=== PATIENT | female | born 1985 | race Asian ===

== ENCOUNTER 2017-11-27 13:14 | Emergency (ER) | payer OTHER ==
[2017-11-27 13:31] VITALS: BP 105/50
--- NOTE | 2017-11-27 14:56 | ED Physician Documentation ---
History of Present Illness - Stated complaint Stated Complaint: ITCHY EYES,JOINT PAIN - Chief complaint Chief Complaint: Heent - Additonal information Additional information: hx from pt 32 f denies preg sinus pressure and seasonal allergy sx also lump under skin of abd wall also always has mm cramps and jt pains - not new Review of Systems Constitutional: denies: Fever, Chills Nose: reports: Congestion, Sinus pressure / pain Respiratory: denies: Cough GI: denies: Abdominal Pain : denies: Now EGA PD PAST MEDICAL HISTORY - Past Medical History Past Medical History: No - Past Surgical History Past Surgical History: No - Present Medications Home Medications: Ambulatory Orders Medication Instructions Recorded Confirmed Cephalexin [Keflex] 500 mg PO Q6H #28 capsule 11/04/15 Phenazopyridine [Pyridium] 100 mg PO Q8H PRN #9 tablet 11/04/15 Fluticasone [Flonase] 2 sprays TRAVIS DAILY PRN #1 bottle 11/27/17 - Allergies Allergies/Adverse Reactions: Allergies Allergy/AdvReac Type Severity Reaction Status Date / Time No Known Drug Allergies Allergy Verified 11/04/15 10:50 - Social History Does the pt smoke?: Yes Smoking Status: Current every day smoker Does the pt drink ETOH?: Yes Does the pt have substance abuse?: No - Immunizations Immunizations are current?: Yes PD ED PE NORMAL - Vitals Vital signs reviewed: Yes - HEENT HEENT: PERRL, Ears normal, Moist mucous membranes (PND and cobblestoning) - Cardiac Cardiac: RRR - Respiratory Respiratory: No respiratory distress, Clear bilaterally - Abdomen Abdomen: Soft, Non tender, Other (small mobile density under skin abd wall most c/w lipoma) - Derm Derm: Normal color - Extremities Extremities: Other (no focal swelling erythema or warmth of ankle wrists or hands) Results - Vitals Vitals: Vital Signs - 24 hr 11/27/17 13:29 Temperature 36.5 C Heart Rate 73 Respiratory 16 Rate Blood Pressure 105/50 L O2 Saturation 100 Oxygen O2 Source Room air Departure - Departure Disposition: 01 Home, Self Care Clinical Impression: Seasonal allergic rhinitis Qualifiers: Allergic rhinitis trigger: unspecified Qualified Code(s): J30.2 - Other seasonal allergic rhinitis Arthralgia Qualifiers: Joint pain location: unspecified Qualified Code(s): M25.50 - Pain in unspecified joint Lipoma Qualifiers: Lipoma location: trunk Qualified Code(s): D17.1 - Benign lipomatous neoplasm of skin and subcutaneous tissue of trunk Condition: Good Instructions: ED Allergy Seasonal Follow-Up: [facility] [Provider Group] Prescriptions: Fluticasone [Flonase] 2 sprays TRAVIS DAILY PRN #1 bottle PRN Reason: allergies Comments: Take the flonase as needed for allergies - no more than two months The lump on your abdomen feels like a lipma and no further treatment is needed unless it gets larger or more painful Try motrin for your aching joints Please follow up with your PMD at [facility]
== END 2017-11-27 15:10 | disposition home or self-care (01) ==
LOC: ED 13:14
DX: J30.2 Other seasonal allergic rhinitis (principal); D17.1 Benign lipomatous neoplasm of skin and subcutaneous tissue of trunk; M25.50 Pain in unspecified joint; F17.200 Nicotine dependence, unspecified, uncomplicated
CPT/HCPCS: 99283

== ENCOUNTER 2018-01-04 13:15 | Emergency (ER) | payer OTHER ==
[2018-01-04 13:41] VITALS: BP 103/69
[2018-01-04] MEDS ORDERED: IBUPROFEN 800 MG TABLET PO STA (13:45)
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
== END 2018-01-04 14:15 | disposition home or self-care (01) ==
LOC: ED 13:15
DX: S46.811A Strain of other muscles, fascia and tendons at shoulder and upper arm level, right arm, initial encounter (principal); V89.2XXA Person injured in unspecified motor-vehicle accident, traffic, initial encounter
CPT/HCPCS: 99283; A9270

== ENCOUNTER 2018-05-11 16:31 | Emergency (ER) | payer OTHER ==
--- NOTE | 2018-05-11 18:17 | ED Physician Documentation ---
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 sore throat denies preg Review of Systems Constitutional: reports: Fever, Myalgias Throat: reports: Sore throat : denies: Now EGA Neurologic: reports: Headache PD PAST MEDICAL HISTORY - Past Medical History Respiratory: None Neuro: None Endocrine/Autoimmune: None - Past Surgical History Past Surgical History: No - Present Medications Home Medications: Ambulatory Orders Medication Instructions Recorded Confirmed Acetaminophen 1,000 mg 05/11/18 Amoxicillin 500 mg PO Q8HR #30 capsule 05/11/18 - Allergies Allergies/Adverse Reactions: Allergies Allergy/AdvReac Type Severity Reaction Status Date / Time No Known Drug Allergies Allergy Verified 05/11/18 16:47 - Social History Does the pt smoke?: Yes Smoking Status: Current every day smoker Does the pt drink ETOH?: Yes Does the pt have substance abuse?: No - Immunizations Immunizations are current?: Yes PD ED PE NORMAL - Vitals Vital signs reviewed: Yes - General General: Alert and oriented X 3 - HEENT HEENT: PERRL, Moist mucous membranes. No: Pharynx benign (erythema and small exudate) - Neck Neck: Supple, no meningeal sign - Cardiac Cardiac: RRR - Respiratory Respiratory: No respiratory distress, Clear bilaterally - Abdomen Abdomen: Non tender, No organomegaly - Neuro Neuro: Alert and oriented X 3 Results - Vitals Vitals: Vital Signs - 24 hr 05/11/18 16:46 Temperature 37.4 C Heart Rate 87 Respiratory 15 Rate Blood Pressure 104/60 O2 Saturation 100 Oxygen O2 Source Room air - Labs Labs: Laboratory Tests 05/11/18 05/11/18 16:50 16:50 Influenza A (Rapid) Negative Influenza B (Rapid) Negative Group A Strep Rapid POSITIVE H Departure - Departure Disposition: 01 Home, Self Care Clinical Impression: Strep pharyngitis Condition: Good Instructions: ED Strep Pharyngitis Conf Prescriptions: Amoxicillin 500 mg PO Q8HR #30 capsule Comments: Rest Drink plenty of fluids Motrin and tylenol for pain and fever Forms: Activity restrictions
[2018-05-11 18:29] VITALS: BP 106/60
== END 2018-05-11 18:29 | disposition home or self-care (01) ==
LOC: ED 16:31
DX: F17.200 Nicotine dependence, unspecified, uncomplicated (principal); J02.0 Streptococcal pharyngitis
CPT/HCPCS: 87275; 87276; 87430; 99283

== ENCOUNTER 2019-04-12 12:43 | Emergency (ER) | payer OTHER ==
[2019-04-12] MEDS ORDERED: predniSONE 20 MG TABLET PO STA (13:07)
--- NOTE | 2019-04-12 13:10 | ED Physician Documentation ---
History of Present Illness - Stated complaint Stated Complaint: BODY PX - Chief complaint Chief Complaint: Ext Problem - History obtained from History obtained from: Patient - History of Present Illness Timing: Yesterday, How many days ago (2) Pain level max: 7 Pain level now: 5 - Additonal information Additional information: 33-year-old female presents to the emergency department with generalized joint pains for the past 2 days. She states that she has been on Accutane for the last 3 weeks, but has been off of it for the last week. She is also taking Bactrim and fluconazole this week for a staph infection. She is scheduled to resume Accutane next week. No fevers. No rhinorrhea or congestion. No co ughing. States she has had similar issues in the past that seemed to resolve on their own. Worse with walking, better with rest. Took Motrin yesterday. Nothing today. Patient is not , trying to become or breast-feeding. Review of Systems Ten Systems: 10 systems reviewed and negative Constitutional: denies: Fever, Chills Ears: denies: Ear pain Nose: denies: Rhinorrhea / runny nose, Congestion Throat: denies: Sore throat Cardiac: denies: Chest pain / pressure Respiratory: denies: Dyspnea, Cough, Wheezing GI: denies: Nausea, Vomiting, Diarrhea : denies: Now EGA Skin: denies: Rash, Lesions Musculoskeletal: reports: Joint pain. denies: Neck pain, Back pain Neurologic: denies: Focal weakness, Numbness, Headache PD PAST MEDICAL HISTORY - Past Medical History Respiratory: None Neuro: None Endocrine/Autoimmune: None - Past Surgical History Past Surgical History: No - Present Medications Home Medications: Ambulatory Orders Medication Instructions Recorded Confirmed Acetaminophen 1,000 mg 05/11/18 Amoxicillin 500 mg PO Q8HR #30 capsule 05/11/18 Meloxicam [Mobic] 15 mg PO DAILY PRN #20 tablet 04/12/19 predniSONE [Deltasone] 10 mg PO [id number] #42 tab 04/12/19 - Allergies Allergies/Adverse Reactions: Allergies Allergy/AdvReac Type Severity Reaction Status Date / Time No Known Drug Allergies Allergy Verified 04/12/19 12:51 - Social History Does the pt smoke?: Yes Smoking Status: Current every day smoker Does the pt drink ETOH?: Yes Does the pt have substance abuse?: No - Immunizations Immunizations are current?: Yes PD ED PE NORMAL - Vitals Vital signs reviewed: Yes - General General: Alert and oriented X 3, No acute distress, Well developed/nourished - HEENT HEENT: PERRL, Moist mucous membranes - Neck Neck: Supple, no meningeal sign - Cardiac Cardiac: RRR, Strong equal pulses - Respiratory Respiratory: No respiratory distress, Clear bilaterally - Abdomen Abdomen: Soft, Non tender, Non distended - Derm Derm: Warm and dry - Extremities Extremities: Other (Mild pain with range of motion of her fingers, wrists, elbows, shoulders, hips, ankles, knees bilaterally. No swelling. No skin changes. Neurovascularly intact. No deformity.) - Neuro Neuro: Alert and oriented X 3 - Psych Psych: Normal mood, Normal affect Results - Vitals Vitals: Vital Signs - 24 hr 04/12/19 12:46 Temperature 36.9 C Heart Rate 79 Respiratory 15 Rate Blood Pressure 116/60 O2 Saturation 100 Oxygen O2 Source Room air PD MEDICAL DECISION MAKING - ED course Complexity details: considered differential, d/w patient ED course: Patient with arthralgias of uncertain cause. Will trial on anti-inflammatories and steroids. We will follow-up with her doctor for further care. She is well-appearing, nontoxic. Afebrile. Patient counseled regarding signs and symptoms for which I believe and urgent re-evaluation would be necessary. Patient with good understanding of and agreement to plan and is comfortable going home at this time This document was made in part using voice recognition software. While efforts are made to proofread this document, sound alike and grammatical errors may occur. Did not have the symptoms while taking the Accutane Departure - Departure Disposition: 01 Home, Self Care Clinical Impression: Arthralgia Qualifiers: Joint pain location: unspecified Qualified Code(s): M25.50 - Pain in unspecified joint Condition: Good Instructions: ED Joint Pain Follow-Up: your,doctor in 1 week [Other] Prescriptions: Meloxicam [Mobic] 15 mg PO DAILY PRN #20 tablet PRN Reason: pain predniSONE [Deltasone] 10 mg PO [id number] #42 tab Comments: Return if you worsen. You should follow-up with your doctor for further care. You may need testing for autoimmune diseases such as rheumatoid arthritis. This should improve over the next few days. Forms: Activity restrictions
[2019-04-12] MEDS ORDERED: MELOXICAM 7.5 MG TABLET PO STA (13:15)
[2019-04-12 13:24] VITALS: BP 114/60
[2019-04-13] MEDS ORDERED: MELOXICAM 7.5 MG TABLET PO SCH (09:00)
== END 2019-04-12 13:23 | disposition home or self-care (01) ==
LOC: ED 12:43
DX: M25.50 Pain in unspecified joint (principal); F17.200 Nicotine dependence, unspecified, uncomplicated
CPT/HCPCS: 99282; 99284; A9270; J7512

== ENCOUNTER 2019-10-22 04:57 | Emergency (ER) | payer OTHER ==
[2019-10-22 05:04] VITALS: BP 117/51
[2019-10-22] MEDS ORDERED: KETOROLAC 60 MG/2 ML VIAL IM STA (05:19)
--- NOTE | 2019-10-22 05:19 | ED Physician Documentation ---
History of Present Illness - Stated complaint Stated Complaint: BACK PX,NECK PX/HEEL PX - Chief complaint Chief Complaint: Back Pain - Additonal information Additional information: This is a 33-year-old female presents with back discomfort. Patient states that she has had intermittent joint and back discomfort for years, she reports she had an autoimmune work-up in the past which was unremarkable. She has been seeing a chiropractor who performed x-rays of her back, they did not see any acute abnormality and she is getting the final read on the XR soon. She states that the back pain began in the absence of any direct trauma, is not associated with fever, she denies any difficulty using the bathroom, no weakness or numbness. Pain is mostly on her right side and is from the lower back up towards the base of her right neck. The pain is worse with palpation of the areas and with twisting or bending forward. Review of Systems Constitutional: denies: Fever Cardiac: denies: Chest pain / pressure Respiratory: denies: Dyspnea : denies: Dysuria Musculoskeletal: reports: Back pain PD PAST MEDICAL HISTORY - Past Medical History Respiratory: None Neuro: None Endocrine/Autoimmune: None - Past Surgical History Past Surgical History: No - Present Medications Home Medications: Ambulatory Orders Medication Instructions Recorded Confirmed Cyclobenzaprine [Flexeril] 10 mg PO TID PRN #20 tablet 10/22/19 - Allergies Allergies/Adverse Reactions: Allergies Allergy/AdvReac Type Severity Reaction Status Date / Time No Known Drug Allergies Allergy Verified 10/22/19 05:05 - Social History Does the pt smoke?: Yes Smoking Status: Current every day smoker Does the pt drink ETOH?: Yes Does the pt have substance abuse?: No - Immunizations Immunizations are current?: Yes PD ED PE NORMAL - Vitals Vital signs reviewed: Yes - General General: Alert and oriented X 3, No acute distress - HEENT HEENT: PERRL - Neck Neck: Supple, no meningeal sign - Cardiac Cardiac: RRR, No murmur - Respiratory Respiratory: No respiratory distress, Clear bilaterally - Abdomen Abdomen: Normal bowel sounds, Soft, Non tender, Non distended - Back Back: Other (Normal in appearance, there is tenderness in the lumbar and facet right paraspinous muscles. No midline tendernessTo palpation of the cervical, thoracic, lumbar spine. No step-offs, no deformities. Negative straight leg raise test, negative cross straight leg raise test. Patient is able to ambulate without issue, she is able to bend forward to 90 degrees with some discomfort.) - Derm Derm: Warm and dry - Extremities Extremities: No deformity, Other (Normal-appearing extremities, no focal tenderness of the heels, no erythema or skin changes. No joint swelling.) - Neuro Neuro: Alert and oriented X 3, No motor deficit, No sensory deficit - Psych Psych: Normal mood, Normal affect Results - Vitals Vitals: Vital Signs - 24 hr 10/22/19 05:01 Temperature 36.4 C L Heart Rate 79 Respiratory 16 Rate Blood Pressure 117/51 L O2 Saturation 98 Oxygen O2 Source Room air PD MEDICAL DECISION MAKING - ED course Complexity details: considered differential (Strain, sprain, cauda equina, Pyelonephritis) ED course: Patient is well-appearing with unremarkable vital signs and a reassuring exam. She has no focal deficits, no red flags for more serious cause of back pain. Her back pain is reproducible with palpation of the paraspinous muscles and certain movements, she has no urinary symptoms, no signs of nephrolithiasis, pyelonephritis. No concerns for pregancy. Abdomen is benign. She has had x-rays recently and I do not feel that repeating them today would be revealing. She additionally reports she had an autoimmune work-up in the past which was negative, and lab work is unlikely to be helpful today. I discussed with her that we will trial ibuprofen, Tylenol, and Flexeril, and she will follow-up closely with her primary care provider. Also reviewed return precautions with any new or worsening symptoms, patient agrees this plan was discharged home in very good condition
[2019-10-22] MEDS ORDERED: CYCLOBENZAPRINE 10 MG TABLET PO STA (05:20)
== END 2019-10-22 05:30 | disposition home or self-care (01) ==
LOC: ED 04:57
DX: M54.6 Pain in thoracic spine (principal); F17.200 Nicotine dependence, unspecified, uncomplicated
CPT/HCPCS: 96372; 99283; 99284; A9270

== ENCOUNTER 2019-10-23 21:22 | Emergency (ER) | payer OTHER ==
--- NOTE | 2019-10-23 23:02 | ED Physician Documentation ---
History of Present Illness - Stated complaint Stated Complaint: BACK PX - Chief complaint Chief Complaint: Back Pain - History obtained from History obtained from: Patient (33-year-old female presents with continued back discomfort. She was seen 2 days ago in the morning discharged home with a prescription for Flexeril. She states that she only took the Flexeril twice today. She has had intermittent joint and back pain for years, she reports that she is seeing a chiropractor, she is awaiting results of back x-rays that were taken by him on Sunday. She does have an appointment with the chiropractor again this coming Sunday. She denies any trauma to her back, denies any fevers denies any problems going to the bathroom, denies weakness or numbness to the lower extremities. Pain is isolated to the right side of her back to the lower back up towards her mid back on the right side. The pain is worse with any movement.) Review of Systems Constitutional: denies: Fever, Chills Cardiac: denies: Chest pain / pressure Respiratory: denies: Dyspnea, Cough : denies: Dysuria Musculoskeletal: reports: Back pain PD PAST MEDICAL HISTORY - Past Medical History Respiratory: None Neuro: None Endocrine/Autoimmune: None - Past Surgical History Past Surgical History: No - Present Medications Home Medications: Ambulatory Orders Medication Instructions Recorded Confirmed Cyclobenzaprine [Flexeril] 10 mg PO TID PRN #20 tablet 10/22/19 - Allergies Allergies/Adverse Reactions: Allergies Allergy/AdvReac Type Severity Reaction Status Date / Time No Known Drug Allergies Allergy Verified 10/23/19 21:26 - Social History Does the pt smoke?: Yes Smoking Status: Current every day smoker Does the pt drink ETOH?: Yes Does the pt have substance abuse?: No - Immunizations Immunizations are current?: Yes PD ED PE NORMAL - General General: Alert and oriented X 3, No acute distress - HEENT HEENT: PERRL - Neck Neck: Supple, no meningeal sign - Cardiac Cardiac: RRR, No murmur - Respiratory Respiratory: No respiratory distress - Abdomen Abdomen: Normal bowel sounds, Soft, Non tender - Back Back: No CVA TTP, Other (Normal appearance, tenderness to the right paraspinous muscles. No spinous process midline tenderness to lumbar, thoracic, cervical. No step-offs. No deformities. Negative straight leg test. Forward flexion to about 90 degrees. Ambulating without difficulty.) - Derm Derm: Normal color, Warm and dry, No rash Results - Vitals Vitals: Vital Signs - 24 hr 10/23/19 10/23/19 21:26 22:46 Temperature 36.3 C L Heart Rate 79 Respiratory 20 17 Rate Blood Pressure 109/68 O2 Saturation 100 Oxygen O2 Source Room air PD MEDICAL DECISION MAKING - ED course Complexity details: considered differential (Strain, sprain), other ED course: Patient has no change since her last visit to the ER 36 hours ago. She has no focal deficits, no red flags. Back pain is recent producible with palpation the right paraspinous muscles and with lateral twisting and bending. Abdomen is benign. Still awaiting results of the spinal x-rays from a chiropractor.Also reviewed return precautions for worsening symptoms. Patient is encouraged to take her Flexeril as prescribed. Departure - Departure Disposition: 01 Home, Self Care Clinical Impression: Back pain Qualifiers: Back pain location: thoracic back pain Chronicity: unspecified Back pain laterality: right Qualified Code(s): M54.6 - Pain in thoracic spine Instructions: ED Sprain Strain Lumbar Comments: Take the Flexeril as prescribed from the ER 2 days ago. He can also add ibuprofen and or Tylenol to help with the pain. Use a heating pad or your hot tub to help relax loosen the muscles out. Likened exercises for range of motion exercises for your back. Keep your appointment with a chiropractor on , To review those x-rays. Follow-up with your primary care provider in 1 week if her symptoms fail to improve
[2019-10-23] MEDS: KETOROLAC 60 MG/2 ML VIAL IM STA (23:03)
[2019-10-23 23:14] VITALS: BP 112/74
== END 2019-10-23 23:20 | disposition home or self-care (01) ==
LOC: ED 21:22
DX: M54.6 Pain in thoracic spine (principal); F17.200 Nicotine dependence, unspecified, uncomplicated
CPT/HCPCS: 96372; 99283; 99284

== ENCOUNTER 2020-03-22 09:22 | Emergency (ER) | payer OTHER ==
--- NOTE | 2020-03-22 09:50 | ED Physician Documentation ---
PD HPI ABD PAIN - Stated complaint Stated Complaint: RT SIDE RIB PX - Chief complaint Chief Complaint: Abd Pain - History obtained from History obtained from: Patient - History of Present Illness Timing - onset: How many months ago (has had this for amonth or more on and off. Persistnet and worse the past several days. Pain localized to right upper abd/lower ribs area. No rash nor sores.) Timing - details: Gradual onset, Waxing and waning Quality: Sharp, Pain Location: RUQ (right lower costal margin area) Radiation: Chest. No: Right flank Improved by: No: Eating Worsened by: Moving, Palpation. No: Eating, Breathing Associated symptoms: No: Fever, Nausea, Vomiting Similar symptoms before: Has not had sx before Recently seen: Not recently seen Review of Systems Constitutional: denies: Fever, Myalgias Nose: denies: Rhinorrhea / runny nose, Congestion Throat: denies: Sore throat Cardiac: reports: Chest pain / pressure. denies: Palpitations, Pedal edema, Calf pain Respiratory: denies: Cough GI: reports: Abdominal Pain. 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 : None HEENT: None Psych: None Musculoskeletal: Other Derm: None - Past Surgical History Past Surgical History: No - Present Medications Home Medications: Ambulatory Orders Medication Instructions Recorded Confirmed Cyclobenzaprine [Flexeril] 10 mg PO TID PRN #20 tablet 10/22/19 Hydrocodone/Acetaminophen 1 each PO Q6H PRN #15 tablet 03/22/20 [Hydrocodone-Acetamin 5-325 mg] Naproxen 500 mg PO BID #20 tablet 03/22/20 - Allergies Allergies/Adverse Reactions: Allergies Allergy/AdvReac Type Severity Reaction Status Date / Time No Known Drug Allergies Allergy Verified 03/22/20 09:24 - Social History Does the pt smoke?: Yes Smoking Status: Current every day smoker Does the pt drink ETOH?: Yes ETOH Use: Wine, Beer Does the pt have substance abuse?: No - Immunizations Immunizations are current?: Yes - POLST Patient has POLST: No PD ED PE NORMAL - Vitals Vital signs reviewed: Yes - General General: Alert and oriented X 3, Well developed/nourished - HEENT HEENT: Pharynx benign - Neck Neck: Supple, no meningeal sign, No adenopathy - Cardiac Cardiac: RRR, No murmur - Respiratory Respiratory: Clear bilaterally - Abdomen Abdomen: Normal bowel sounds, Soft, Non distended, No organomegaly, Other (tender upper abd/lower costal margin on right. No rash, no redness, no crepitance. ) - Back Back: No CVA TTP - Derm Derm: Normal color, Warm and dry - Extremities Extremities: No tenderness to palpate, No edema, No calf tenderness / cord - Neuro Neuro: Alert and oriented X 3, No motor deficit, No sensory deficit, Normal speech Results - Vitals Vitals: Oxygen O2 Source Room air - Labs Labs: Laboratory Tests 03/22/20 03/22/20 03/22/20 10:09 10:15 10:15 WBC 5.5 RBC 4.66 Hgb 14.5 Hct 41.8 MCV 89.7 MCH 31.1 H MCHC 34.7 RDW 12.0 Plt Count 302 MPV 9.6 Neut # (Auto) 3.3 Lymph # (Auto) 1.4 L Sac # (Auto) 0.5 Eos # (Auto) 0.2 Baso # (Auto) 0.0 Absolute Nucleated RBC 0.00 Nucleated RBC % 0.0 Sodium 139 Potassium 3.7 Chloride 103 Carbon Dioxide 27 Anion Gap 9.0 BUN 11 Creatinine 0.8 Estimated GFR (MDRD) 81 L Glucose 95 Calcium 9.3 Total Bilirubin 0.3 AST 17 ALT 16 Alkaline Phosphatase 72 Total Protein 7.2 Albumin 3.9 Globulin 3.3 Albumin/Globulin Ratio 1.2 Lipase 28 Urine Color YELLOW Urine Clarity CLEAR Urine pH 7.0 Ur Specific Thornton 1.020 Urine Protein NEGATIVE Urine Glucose (UA) NEGATIVE Urine Ketones NEGATIVE Urine Occult Blood NEGATIVE Urine Nitrite NEGATIVE Urine Bilirubin NEGATIVE Urine Urobilinogen 0.2 (NORMAL) Ur Leukocyte Esterase NEGATIVE Ur Microscopic Review NOT INDICATED Urine Culture Comments NOT INDICATED Urine HCG, Qual NEGATIVE - Rads (name of study) RUQ U/S Radiology: Prelim report reviewed (normal), See rad report CXR Radiology: Prelim report reviewed (normal), See rad report PD MEDICAL DECISION MAKING - ED course Complexity details: considered differential (does not appear lung nor upper abd on testing. Clinically feels like costchondral tenderness. ), d/w patient Departure - Departure Disposition: 01 Home, Self Care Clinical Impression: Acute chest wall pain, Acute costochondritis Condition: Stable Record reviewed to determine appropriate education?: Yes Instructions: ED Chest Pain Costochondritis Follow-Up: [facility] [Provider Group] Prescriptions: Hydrocodone/Acetaminophen [Hydrocodone-Acetamin 5-325 mg] 1 each PO Q6H PRN #15 tablet PRN Reason: Pain Naproxen 500 mg PO BID #20 tablet Comments: Chest x-ray and ultrasound look normal. Blood tests are normal 2. No signs of upper abdominal organ or lung problems. This seems to be inflammation of the cartilage at the lower margin of the ribs. Treat this with naproxen anti-inflammatory twice daily with food. To that add Tylenol or hydrocodone if needed for worse pain. Recheck if not improved well over the next several days and resolved by a week. Discharge Date/Time: 03/22/20 12:08
[2020-03-22] MEDS ORDERED: ONDANSETRON 4 MG/2 ML VIAL IVP STA (10:01)
[2020-03-22] MEDS ORDERED: KETOROLAC 15 MG/ML VIAL IVP STA (10:01)
[2020-03-22] MEDS ORDERED: MORPHINE 10 MG/ML VIAL IVP STA ×2 (10:01→11:23)
[2020-03-22] MEDS ORDERED: SODIUM CHLORIDE 0.9% 1,000 ML IV STA (10:01)
[2020-03-22 10:13] LABS: BILIRUBIN,URINE NEGATIVE (NEGATIVE); CLARITY,URINE CLEAR (CLEAR); GLUCOSE, URINE (UA) NEGATIVE (NEGATIVE); KETONES,URINE (UA) NEGATIVE (NEGATIVE); LEUKOCYTE ESTERASE, URINE NEGATIVE (NEGATIVE); NITRITE,URINE NEGATIVE (NEGATIVE); OCCULT BLOOD,URINE NEGATIVE (NEGATIVE); PROTEIN,URINE NEGATIVE (NEGATIVE); UROBILINOGEN,URINE 0.2 (NORMAL) E.U./dL (NORMAL)
[2020-03-22 10:16] LABS: HCG UR QUAL NEGATIVE
[2020-03-22 10:36] LABS: BASOPHILS % (AUTO) 0.4 %; EOSINOPHILS # (AUTO) 0.2 10^3/uL (0.0-0.7); EOSINOPHILS % (AUTO) 3.8 %; HGB - HEMOGLOBIN 14.5 g/dL (12.0-16.0); LYMPHOCYTES # (AUTO) 1.4 10^3/uL (1.5-3.5); LYMPHOCYTES % (AUTO) 25.8 %; MEAN CORPUSCULAR HEMOGLOBIN 31.1 pg (27.0-31.0); MEAN CORPUSCULAR HGB CONC 34.7 g/dL (32.0-36.0); MEAN CORPUSCULAR VOLUME 89.7 fL (81.0-99.0); MEAN PLATELET VOLUME 9.6 fL (7.9-10.8); MONOCYTES # (AUTO) 0.5 10^3/uL (0.0-1.0); MONOCYTES % (AUTO) 9.9 %; NEUTROPHILS # (AUTO) 3.3 10^3/uL (1.5-6.6); NEUTROPHILS % (AUTO) 59.9 %; PLT - PLATELET COUNT 302 10^3/uL (130-450); RED BLOOD COUNT 4.66 10^6/uL (4.20-5.40); WHITE BLOOD COUNT 5.5 x10^3/uL (4.8-10.8)
[2020-03-22 10:52] LABS: ALBUMIN 3.9 g/dL (3.2-5.5); ALBUMIN/GLOBULIN RATIO 1.2 (1.0-2.2); BILIRUBIN,TOTAL 0.3 mg/dL (0.2-1.0); CALCIUM 9.3 mg/dL (8.5-10.3); CREATININE 0.8 mg/dL (0.4-1.0); TOTAL PROTEIN 7.2 g/dL (6.7-8.2)
--- NOTE | 2020-03-22 10:58 | XRAY Report ---
PROCEDURE: Chest 1 View X-Ray INDICATIONS: Chest pain; right lower ribs for 2 days TECHNIQUE: One view of the chest was acquired. COMPARISON: None FINDINGS: Surgical changes and devices: None. Lungs and pleura: No pleural effusions or pneumothorax. Lungs are clear. Mediastinum: Mediastinal contours appear normal. Heart size is normal. Bones and chest wall: No suspicious bony lesions. Overlying soft tissues appear unremarkable. IMPRESSION: Normal chest radiograph. Reviewed by: Ishan Fajardo MD on 03/22/2020 10:57 AM PDT Approved by: Ishan Fajardo MD on 03/22/2020 10:57 AM PDT Station ID: [id number]
--- NOTE | 2020-03-22 11:03 | Ultrasound Report ---
PROCEDURE: Abdomen Limited INDICATIONS: RUQ pain for 2 days, nausea. TECHNIQUE: Real-time focused scanning was performed of the abdomen, with image documentation. COMPARISON: None FINDINGS: Normal sonographic appearance of the liver, spleen, partially visualized proximal pancreas, and kidne ys. The gallbladder is normally distended with no wall thickening, shadowing calculus, or sludge. No intrahepatic or extrahepatic biliary ductal dilatation. Normal appearance of the aorta. IVC is unremarkable. IMPRESSION: Normal abdominal ultrasound. Reviewed by: Ishan Fajardo MD on 03/22/2020 11:02 AM PDT Approved by: Ishan Fajardo MD on 03/22/2020 11:02 AM PDT Station ID: [id number]
[2020-03-22] MEDS ORDERED: DEXAMETHASONE 10 MG/ML VIAL IVP STA (11:23)
[2020-03-22 11:46] VITALS: BP 101/63
== END 2020-03-22 12:08 | disposition home or self-care (01) ==
LOC: ED 09:22
DX: M94.0 Chondrocostal junction syndrome [Tietze] (principal); R07.89 Other chest pain; F17.200 Nicotine dependence, unspecified, uncomplicated
CPT/HCPCS: 36415; 71045; 76705; 80053; 81001; 81003; 81025; 83690; 85025; 87086; 96374; 96375; 99284

== ENCOUNTER 2020-07-09 13:17 | Emergency (ER) | payer OTHER ==
[2020-07-09] MEDS ORDERED: CHERRY SYRUP 10 ML UDC PO ONE (13:57)
[2020-07-09] MEDS ORDERED: DEXAMETHASONE 10 MG/ML VIAL PO STA (13:57)
[2020-07-09] MEDS ORDERED: KETOROLAC 60 MG/2 ML VIAL IM STA (13:58)
--- NOTE | 2020-07-09 14:01 | ED Physician Documentation ---
PD HPI BACK PAIN - Stated complaint Stated Complaint: LOW BACK PX - Chief complaint Chief Complaint: Back Pain - History obtained from History obtained from: Patient - History of Present Illness Timing - onset: Yesterday Timing - duration: Days (1) Timing - details: Abrupt onset, Still present Location: Lower Quality: Pain, Spasm, Sharp, Similar to prior episodes Associated symptoms: No: Fever, Weakness, Numbness, Incontinent of urine, Unable to urinate, Hematuria, Incontinent of stool Improves with: Rest, Position Worsened by: Movement, Twisting, Palpation Contributing factors: Other (The patient indicates she was working hard putting a lot of [employer] stuff away and then yesterday went to sisal picker a small child out of a hot tub had sudden onset of severe back spasm.) Similar symptoms before: Diagnosis (back pain) Recently seen: Not recently seen - Additional information Additional information: 34 y/o female spending extra time taking down [employer] then lifted an infant out of a hot tub and when she did this she had the sudden onset of pain in her back. She has not recently been ill. Review of Systems Constitutional: denies: Fever Ears: denies: Ear pain Nose: denies: Congestion Throat: denies: Sore throat Cardiac: denies: Chest pain / pressure Respiratory: denies: Cough GI: denies: Nausea, Vomiting, Diarrhea Skin: denies: Rash Musculoskeletal: reports: Back pain. 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 : None HEENT: None Psych: None Musculoskeletal: Other Derm: None - Past Surgical History Past Surgical History: No - Present Medications Home Medications: Ambulatory Orders Medication Instructions Recorded Confirmed Cyclobenzaprine [Flexeril] 10 mg PO TID PRN #20 tablet 10/22/19 Hydrocodone/Acetaminophen 1 each PO Q6H PRN #15 tablet 03/22/20 [Hydrocodone-Acetamin 5-325 mg] Naproxen 500 mg PO BID #20 tablet 03/22/20 Cyclobenzaprine [Flexeril] 10 mg PO TID PRN #20 tablet 07/09/20 Hydrocodone/Acetaminophen [[place] 1 - 2 each PO Q6HR PRN #14 tablet 07/09/20 5-325 Tablet] - Allergies Allergies/Adverse Reactions: Allergies Allergy/AdvReac Type Severity Reaction Status Date / Time No Known Drug Allergies Allergy Verified 03/22/20 09:24 - Social History Does the pt smoke?: Yes Smoking Status: Current every day smoker Does the pt drink ETOH?: Yes Does the pt have substance abuse?: No - Immunizations Immunizations are current?: Yes - POLST Patient has POLST: No PD ED PE NORMAL - Vitals Vital signs reviewed: Yes (normal ) - General General: Alert and oriented X 3, No acute distress, Well developed/nourished - HEENT HEENT: Atraumatic, PERRL, EOMI - Respiratory Respiratory: No respiratory distress - Back Back: No CVA TTP, Other (There is tenderness to the paraspinous muscles of the lower lumbar spine bilaterally extending into the sciatic notch. ) - Derm Derm: Normal color, Warm and dry, No rash - Extremities Extremities: No deformity, No edema - Neuro Neuro: Alert and oriented X 3, program lead 2-12 intact, No motor deficit, No sensory deficit, Normal speech Eye Opening: Spontaneous Motor: Obeys Commands Verbal: Oriented GCS Score: 15 - Psych Psych: Normal mood, Normal affect Results - Vitals Vitals: Vital Signs - 24 hr 07/09/20 07/09/20 13:23 14:26 Temperature 36.4 C L Heart Rate 74 72 Respiratory 14 16 Rate Blood Pressure 115/73 116/77 O2 Saturation 99 100 Oxygen O2 Source Room air PD MEDICAL DECISION MAKING - ED course Complexity details: reviewed old records, re-evaluated patient, considered differential, d/w patient ED course: 34 y/o female with acute lumbar paraspinous muscle spasm appears to be from overuse. She is administered IM toradal and PO decadron. Departure - Departure Disposition: 01 Home, Self Care Clinical Impression: Lumbar paraspinal muscle spasm Condition: Stable Instructions: ED Low Back Pain Injury Follow-Up: [facility] [Provider Group] Prescriptions: Hydrocodone/Acetaminophen [[place] 5-325 Tablet] 1 - 2 each PO Q6HR PRN #14 tablet PRN Reason: Pain Cyclobenzaprine [Flexeril] 10 mg PO TID PRN #20 tablet PRN Reason: Spasms Forms: Activity restrictions Discharge Date/Time: 07/09/20 14:26
[2020-07-09 14:27] VITALS: BP 116/77
--- OUTSIDE RECORDS SUMMARY | 2020-07-14 01:40 | EXTERNAL MEDICAL SUMMARY RPT | Continuity of Care Document ---
:1985 Demographics Phone Unavailable Preferred Language Unknown Marital Status Unknown Evangelical Affiliation Unknown Race Unknown Ethnic Group Unknown Author Organization [facility] Address [address] [id number] Phone Support Name Relationship Address Phone SWIN Unavailable Unavailable Unavailable Allergies date description facility SULFA (SULFONAMIDE ANTIBIOTICS) [facility] NO ALLERGY INFORMATION AVAILABLE [facility] [place] [facility] SULFA (SULFONAMIDE ANTIBIOTICS) [facility] NO KNOWN ALLERGIES [facility] CODEINE [facility] ERYTHROMYCIN BASE [facility] ROPINIROLE [facility] IODINE [facility] OXYCODONE-ASPIRIN [facility] No Known Drug Allergies [facility] Social History date description facility [id number]
== END 2020-07-09 14:26 | disposition home or self-care (01) ==
LOC: ED 13:17
DX: M62.830 Muscle spasm of back (principal); M54.5 Low back pain; F17.200 Nicotine dependence, unspecified, uncomplicated
CPT/HCPCS: 96372; 99283; 99284; A9270

== ENCOUNTER 2022-04-13 11:15 | Outpatient (CLI) | payer OTHER ==
[2022-04-13 18:17] LABS: BASOPHILS % (AUTO) 0.4 %; EOSINOPHILS # (AUTO) 0.3 10^3/uL (0.0-0.7); EOSINOPHILS % (AUTO) 5.6 %; HCT - HEMATOCRIT 41.6 % (37.0-47.0); LYMPHOCYTES # (AUTO) 1.9 10^3/uL (1.5-3.5); LYMPHOCYTES % (AUTO) 37.5 %; MEAN CORPUSCULAR HEMOGLOBIN 30.4 pg (27.0-31.0); MEAN CORPUSCULAR HGB CONC 33.7 g/dL (32.0-36.0); MEAN CORPUSCULAR VOLUME 90.2 fL (81.0-99.0); MEAN PLATELET VOLUME 10.6 fL (7.9-10.8); MONOCYTES # (AUTO) 0.4 10^3/uL (0.0-1.0); NEUTROPHILS # (AUTO) 2.4 10^3/uL (1.5-6.6); NEUTROPHILS % (AUTO) 48.3 %; PLT - PLATELET COUNT 304 10^3/uL (130-450); RED BLOOD COUNT 4.61 10^6/uL (4.20-5.40); RED CELL DISTRIBUTION WIDTH 11.9 % (12.0-15.0)
[2022-04-13 18:24] LABS: ALBUMIN 3.9 g/dL (3.2-5.5); ALBUMIN/GLOBULIN RATIO 1.3 (1.0-2.2); ALKALINE PHOSPHATASE 60 IU/L (42-121); ALT ALANINE AMINOTRANSFERASE 19 IU/L (10-60); AST ASPARTATE AMINOTRANSFERASE 21 IU/L (10-42); BILIRUBIN,TOTAL 0.2 mg/dL (0.2-1.0); BUN - BLOOD UREA NITROGEN 16 mg/dL (6-20); CALCIUM 9.7 mg/dL (8.5-10.3); CARBON DIOXIDE - CO2 25 mmol/L (21-32); CHLORIDE 104 mmol/L (101-111); CHOL/HDL RATIO 2.3 (<4.4); CHOLESTEROL 189 mg/dL; CREATININE 0.7 mg/dL (0.4-1.0); GFR - MDRD 94 (>89); GLUCOSE 99 mg/dL (70-100); HDL CHOLESTEROL 81 mg/dL; LDL CHOLESTEROL,CALCULATED 83 mg/dL; POTASSIUM 4.1 mmol/L (3.5-5.0); SODIUM 138 mmol/L (135-145); TRIGLYCERIDES 127 mg/dL; VLDL CHOLESTEROL 25 mg/dL
[2022-04-13 18:27] LABS: THYROID STIMULATING HORMONE 1.43 uIU/mL (0.34-5.60)
== END 2022-04-13 11:16 | disposition home or self-care (01) ==
LOC: LAB.N 11:15
PROVIDERS: ATTEND Nurse Practitioner
DX: R53.83 Other fatigue (principal); Z13.220 Encounter for screening for lipoid disorders
CPT/HCPCS: 36415; 80053; 80061; 83721; 84443; 85025

== ENCOUNTER 2023-03-16 08:45 | Outpatient (CLI) | payer OTHER ==
[2023-03-16 12:18] LABS: BASOPHILS % (AUTO) 0.5 %; EOSINOPHILS # (AUTO) 0.2 10^3/uL (0.0-0.7); EOSINOPHILS % (AUTO) 4.4 %; HCT - HEMATOCRIT 43.1 % (37.0-47.0); HGB - HEMOGLOBIN 14.4 g/dL (12.0-16.0); LYMPHOCYTES # (AUTO) 1.5 10^3/uL (1.5-3.5); LYMPHOCYTES % (AUTO) 34.6 %; MEAN CORPUSCULAR HEMOGLOBIN 30.3 pg (27.0-31.0); MEAN CORPUSCULAR HGB CONC 33.4 g/dL (32.0-36.0); MEAN CORPUSCULAR VOLUME 90.7 fL (81.0-99.0); MONOCYTES # (AUTO) 0.4 10^3/uL (0.0-1.0); MONOCYTES % (AUTO) 8.2 %; NEUTROPHILS # (AUTO) 2.2 10^3/uL (1.5-6.6); NEUTROPHILS % (AUTO) 52.3 %; PLT - PLATELET COUNT 293 10^3/uL (130-450); RED BLOOD COUNT 4.75 10^6/uL (4.20-5.40); RED CELL DISTRIBUTION WIDTH 11.9 % (12.0-15.0); WHITE BLOOD COUNT 4.3 x10^3/uL (4.8-10.8)
[2023-03-16 12:31] LABS: ALBUMIN/GLOBULIN RATIO 1.4 (1.0-2.2); BILIRUBIN,TOTAL 0.4 mg/dL (0.2-1.0); CALCIUM 9.7 mg/dL (8.5-10.3); CREATININE 0.7 mg/dL (0.6-1.3); CRP - C-REACTIVE PROTEIN 0.8 mg/dL (<0.5); POTASSIUM 4.2 mmol/L (3.5-4.5); TOTAL PROTEIN 6.8 g/dL (6.4-8.9); URIC ACID 5.9 mg/dL (2.3-6.6)
[2023-03-16 13:48] LABS: RHEUMATOID FACTOR NEGATIVE (Negative)
[2023-03-17 17:08] LABS: ANTI-DNA (DS) AB QN 3 IU/mL (0-9)
[2023-03-17 22:07] LABS: CYCLIC CITRULLINATED PEP IGG/A 3 units (0-19)
[2023-03-19 18:07] LABS: ANTINUCLEAR ANTIBODIES IFA Negative (.)
== END 2023-03-16 08:46 | disposition home or self-care (01) ==
LOC: LAB.N 08:45
PROVIDERS: ATTEND Nurse Practitioner
DX: M25.50 Pain in unspecified joint (principal); R53.83 Other fatigue
CPT/HCPCS: 36415; 80053; 84550; 85025; 85651; 86038; 86140; 86200; 86225; 86430

== ENCOUNTER 2023-04-23 08:00 | Outpatient (CLI) | payer OTHER ==
[2023-04-23 21:30] LABS: BACTERIAL VAGINOSIS DNA POSITIVE (NEGATIVE); CANDIDA GLABRATA DNA NEGATIVE (NEGATIVE); CANDIDA GROUP DNA NEGATIVE (NEGATIVE); CANDIDA KRUSEI DNA NEGATIVE (NEGATIVE)
[2023-04-23 21:34] LABS: CHLAMYDIA TRACHOMATIS DNA NEGATIVE (NEGATIVE); NEISSERIA GONORRHOEAE DNA NEGATIVE (NEGATIVE); TRICHOMONAS VAGINALIS DNA NEGATIVE (NEGATIVE)
== END 2023-04-23 23:59 | disposition home or self-care (01) ==
LOC: LAB.WC 08:00
PROVIDERS: ATTEND Nurse Practitioner
DX: Z11.3 Encounter for screening for infections with a predominantly sexual mode of transmission (principal)
CPT/HCPCS: 81514; 87491; 87591; 87661

== ENCOUNTER 2023-04-23 11:38 | Outpatient (CLI) | payer OTHER ==
[2023-04-23 12:35] LABS: ESTIMATED AVERAGE GLUCOSE 97 mg/dL (70-100)
== END 2023-04-23 11:39 | disposition home or self-care (01) ==
LOC: LAB 11:38
PROVIDERS: ATTEND Nurse Practitioner
DX: L81.9 Disorder of pigmentation, unspecified (principal); Z11.3 Encounter for screening for infections with a predominantly sexual mode of transmission
CPT/HCPCS: 36415; 81514; 83036; 84443; 87491; 87591; 87661